=== PATIENT | male | born 1985 | race African-American/Black ===

== ENCOUNTER 2020-06-14 19:44 | Emergency (ER) | payer OTHER ==
[~2020-06-14] VITALS: Ht 190.5 cm; Wt 95.3 kg
--- NOTE | 2020-06-14 19:53 | NUR ---
ED Nurse Note: ambulated to ed c/o recurrent back abcess x 2017. reports undergoing treatment for condition. patient reports drainage and tenderness to the site. patient ao4 with no acute distress. changed into gown. all safety measures met.
[2020-06-14 19:55] VITALS: BP 127/77
--- NOTE | 2020-06-14 20:15 | NUR ---
ED Nurse Note: assisted ermd for I&D at bedside.
[2020-06-14] MEDS ORDERED: Lidocaine 1% Plain 30 ml INJ ONE ×2 (20:28→20:30)
[2020-06-14] MEDS ORDERED: Tetanus/Diptheria/Pertussis IM ONE (20:30)
[2020-06-14] MEDS ORDERED: Clindamycin 150mg cap ORAL SCH (20:30)
[2020-06-14] MEDS ORDERED: NAPROXEN500 M1 ORAL (20:48)
[2020-06-14] MEDS ORDERED: NORCO 5-325 TA1 EAC1 ORAL (20:48)
[2020-06-14] MEDS ORDERED: DOXYCYCLINE MO100 MG ORAL (20:48)
[2020-06-14] MEDS ORDERED: BACTRIM DS TAB1 EAC1 ORAL (20:48)
--- NOTE | 2020-06-14 20:48 | Emergency Room Report ---
History of Present Illness General Chief Complaint: Skin Rash/Abscess Source: Patient Present Illness HPI 35-year-old -[place] male no prior medical history presents with acute on chronic left back abscess x1.5 weeks. Patient states that this is the third time that the abscess has recurred since 2017. He has not followed up with a specialist regarding his recurrent abscess. States it always happens in the same place. He delayed seeking care, however starting 4 days ago he noticed an enlargement to the abscess as well as pain. Unknown Tdap status. Denies fever, axial skeleton pain, neck pain, headache, photophobia, chest pain, shortness of breath, saddle anesthesia, urinary retention, bowel or bladder incontinence, or any other symptoms. The patient's symptoms were gradual onset, severity was moderate, duration since 1.5 weeks ago, but worse over the past 4 days. Quality: Aching, swollen Past medical history: Recurrent back abscess Past surgical history: Previous incision and drainage to back abscess Smoking: Positive for tobacco Alcohol use: Denies Drug use: Denies Review of systems: CONST: No fevers or chills, No night sweats PULMONARY: No productive cough, No shortness of breath CARDIAC: No chest pain, No palpitations GI: No vomiting, No diarrhea , No melena_or_BRBPR : No dysuria, No hematuria, No discharge NEURO: No new_focal_weakness_or_numbness, No confusion, No vision changes 14 point Review of Systems is otherwise negative except per HPI Physical Exam: GENERAL: Awake_alert_ nontoxic, no acute distress Spo2 98% on RA -normal EYES: Extraocular muscles are intact. Conjunctivae clear. Lids without swelling ENT: External nose and ear normal_in_appearance. Oropharynx clear. Head_atraumatic, Moist_oral_mucosa NECK: No JVD. No meningismus. No thyromegaly. Supple. Trachea midline. RESP: Normal respiratory effort. Symmetric rise. No stridor. Clear_to_auscultation_No_rales_No_wheezes CARDIAC: Regular rate and regular rhytm. No_significant pedal edema. ABDOMEN: Soft. Nondistended. Nontender_No_rebound_or_guarding. MSK: Normal muscle tone, without rigidity. Extremities without asymmetric deformity or swelling. No midline cervical, thoracic, or lumbar tenderness to palpation SKIN: Large fluctuant 4 x 4 centimeter abscess with indurated borders. No overlying cellulitis. No palpable crepitus. Warm and dry. No visible cyanosis or pallor. No petechial rash. NEUROLOGIC: Alert, oriented x3. Motor_and_sensation_grossly_intact. No truncal ataxia. Gait_normal Psych: Normal mood and affect, normal judgment and insight - COORDINATION OF CARE Case was discussed with: Patient Any imaging that were ordered were interpreted as part of the medical decision making: Medical Decision Making/Plan: Differential diagnosis: Abscess versus cyst versus lipoma versus cellulitis versus malignancy Patient is well-appearing and afebrile. On clinical evaluation, he is found to have a large fluctuant abscess to the left side of his thoracic spine. There is no indication of spinal epidural abscess at this time. No red flag symptoms for back pain or meningitis/encephalitis. Incision and drainage was performed at bedside with retrieval of approximately 10cc purulent material. This material was sent for culture. Patient was started on antibiotics in the emergency department. Pain control was given. Tdap status was updated. Patient was informed that if the culture was resistant to the antibiotics he was discharged on that he would be called in new antibiotics. Patient was advised to follow-up with his primary care doctor for referral to a crew truck driver or general surgeon for elective washout of his recurrent back abscess. I suspect that there is an infected cyst which is why it keeps recurring in the same location. Patient verbalizes understanding of the plan and is amenable to discharge home at this time. Pertinent results reviewed with the patient. I educated the patient on the current treatment plan including the risks, benefits, and alternatives. I also discussed the extent and limitations of the current evaluation. The patient expressed understanding and agreement with plan. I recommended PMD follow-up within 1-2 days. Also advised that the patient return to the Emergency Department as soon as possible if they experience any new, persistent, or worsening symptoms. Allergies: Coded Allergies: No Known Allergies (Unverified , 06/14/20) COVID-19 Screening Contact w/high risk pt: No Experienced COVID-19 symptoms?: No COVID-19 Testing performed SHEEPSKIN PICKLER: No Nursing Documentation-PMH Past Medical History: No Stated History Physical Exam Vital Signs Date Time Temp Pulse Resp B/P (MAP) Pulse Ox O2 Delivery O2 Flow Rate FiO2 06/14/20 19:48 98.4 92 16 127/77 (94) 98 06/14/20 19:55 Room Air Sp02 EP Interpretation: reviewed, normal Procedures Incision and Drainage Progress Abscess Incision and Drainage with irrigation by me: Location: Left thoracic back Anesthesia: Local 1% Lidocaine Technique: Irrigated. Wound culture sent. Disrupted loculations w/ instrumentation Removed a total of approximately 10 cc of purulent material Packing: Yes Complications: Neurovascularly intact post procedure Patient tolerated procedure well without complications Medical Decision Making Diagnostic Impression: Primary Impression: Back abscess Reevaluation Time: 20:44 Last Vital Signs Date Time Temp Pulse Resp B/P (MAP) Pulse Ox O2 Delivery O2 Flow Rate FiO2 06/14/20 19:55 98.4 84 16 127/77 98 Room Air Status: improved Disposition: HOME, SELF-CARE Admit Decision Time: 20:44 Condition: Stable Scripts Hydrocodone Bit/Acetaminophen 5-325* (NORCO 5-325 TABLET*) 1 Each Tablet 1 TAB ORAL Q4H PRN for For Pain, #10 TAB Prov: Carole Gonsalez.Cr. 06/14/20 Naproxen* (NAPROXEN*) 500 Mg Tablet.dr 500 MG ORAL TWICE A DAY for 10 Days, #20 TAB Prov: Carole Gonsalez.O. 06/14/20 Doxycycline Monohydrate* (DOXYCYCLINE MONOHYDRATE*) 100 Mg Capsule 100 MG ORAL Q12H, #20 CAP 0 Refills Prov: GonsalezOdell pegueroe D.O. 06/14/20 Trimethoprim/Sulfamethoxazole 160/800* (BACTRIM DS TABLET*) 1 Each Tablet 1 TAB ORAL Q12H, #20 TAB 0 Refills Prov: Carole Gonsalez.Cr. 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 Due to the fact that discontinuation continues to recur, you may have a cyst or sac that requires elective surgical removal. Keep site clean and dry. Wound check in 48 hrs. Do not take [place] and drive. Do not combine with alcohol. [place] is potentially sedating. Follow-up with your doctor sooner if your condition requires a more timely clinical reevaluation. Return to the emergency department immediately if you feel that your condition is worsening or if you have any new or concerning symptoms. Review your discharge instructions and take any prescriptions given as instructed. [facility] PROVIDES FREE OR LOW-COST HEALTH SERVICES TO PEOPLE WHO CAN SHOW PROOF THAT THEY LIVE IN [facility]. TO FIND MORE CLINICS PARTNERED WITH THE [facility] TO PROVIDE SERVICE, PLEASE CALL . You had a WOUND culture done to evaluate for specific types of bacteria associated with your recurrent abscess infection. You were given an antibiotic that should treat most bacteria that usually occur with a urinary infection, but there is always the possibility of antibiotic resistance. You will receive a telephone call if it is positive. If you do not receive a call, they are likely negative, but you should return to medical records to get your results to be sure, or have your primary doctor obtain them from our hospital, and especially if you are having persistent symptoms. If you are having persistent symptoms and are not able to get a hold of your culture results or your regular doctor you should return to the ER for a reevaluation. Carole Gonsalez D.O. Jun 14, 2020 20:48
[2020-06-14 21:00] VITALS: BP 125/73
--- NOTE | 2020-06-14 21:00 | NUR ---
ER DISCHARGE NOTE: Patient is cleared to be discharged per ERMD, pt is aox4, on room air, with stable vital signs. pt was given dc and prescription instructions, pt was able to verbalize understanding, pt id band removed. pt is able to ambulate with steady gait. pt took all belongings.
== END 2020-06-14 21:00 | disposition home or self-care (01) ==
LOC: EMR 20:16
DX: L02.212 Cutaneous abscess of back [any part, except buttock and flank] (principal); Z23 Encounter for immunization
CPT/HCPCS: 10060; 87070; 87205; 90471; 90715; J2001; Z7502; 99283